=== PATIENT | male | born 1930 | race Caucasian/White ===

== ENCOUNTER 2017-04-30 15:22 | Emergency (ER) | payer OTHER, MEDICARE ==
[~2017-04-30] VITALS: Ht 157.5 cm; Wt 63.5 kg
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
[2017-04-30 17:27] VITALS: BP 119/72
== END 2017-04-30 17:27 ==
LOC: ERH 15:22
DX: S51.811A Laceration without foreign body of right forearm, initial encounter (principal); V89.0XXA Person injured in unspecified motor-vehicle accident, nontraffic, initial encounter; Y92.481 Parking lot as the place of occurrence of the external cause